=== PATIENT | female | born 1965 | race Caucasian/White ===

== ENCOUNTER 2017-01-12 21:36 | Emergency (ER) | payer MEDICARE ==
[~2017-01-12 21:36] MED LIST: ADVAIR 2501 DISK W/D; ALBUTEROL17 GM; ALER-CAP25 M1 PO; AMBIEN10 M1 PO; AMBIEN5 M1 PO; ATARAX50 MG; ATIVAN0.5 MG; ATIVAN1 M2 PO; AUGMENTIN 875-1 EAC2 PO; AVELOX400 MG; BENADRYL ALLERG25 M1 PO; BENADRYL PO; BENADRYL25 M3 PO; BIRTH CONTROL PO; BUPROPION XL300 M1 PO; CATAPRES0.1 MG; CEFTIN250 M1; CEFTIN250 M1 PO; CEFTRIAXONE IM; CIPRO500 M2 PO; CLONAZEPAM0.5 M2 PO; CLONAZEPAM1 M2 PO; CLONIDINE HCL0.1 MG; CLONIDINE HCL0.2 M1 PO; COUMADIN2.5 M1 PO; COUMADIN5 M2 PO; COUMADIN5 MG; COZAAR50 M1 PO; CYMBALTA30 M1 PO; CYMBALTA60 MG PO; DIOVAN80 M; ELIQUIS2.5 M1 PO; ELIQUIS5 M1 PO; ENTOCORT EC3 M1 PO; ENTOCORT EC3 MG PO; ESTRACE1 M3 PO; ESTRADIOL VG; FIORICET 50-301 EAC1 PO; GENTAMICIN; HYDROCODON-ACE1 EA16 PO; HYDROCODON-ACE1 EA17 PO; IRBESARTAN-HCT1 EAC1 PO; KEFLEX500 M4 PO; LAMICTAL200 M1 PO; LAMICTAL200 MG; LAMOTRIGINE ER200 MG PO; LEVAQUIN500 M1 PO; LEVOTHYROXINE137 MC1 PO; LEVOTHYROXINE175 MC2 PO; LIPITOR20 M1 PO; LIPITOR20 MG; LIPITOR20 MG PO; LIPITOR40 M1 PO; LOPRESSOR100 M1 PO; LORAZEPAM1 M1 PO; LORTAB 5-325 M1 EAC1 PO; LOSARTAN POTASS25 M1 PO; LUPRON; LUPRON DEP; MACROBID 100 M100 M1 PO; MOTRIN800 MG; NEXIUM40 MG; NORCO 5-325 TA1 EACH PO; NORCO 5/3251 TA1 PO; NORCO 7.5-3251 EACH PO; NORVASC10 MG; NUCYNTA50 M1 PO; OMEPRAZOLE40 M2 PO; PAXIL20 M1 PO; PAXIL30 M1 PO; PAXIL40 M1 PO; PEPCID20 MG PO; PERCOCET 10-321 EACH PO; PERCOCET 2.5-31 EACH PO; PERCOCET 5-3251 EACH PO; PHENERGAN25 M4 PR; PHENERGAN25 MG; PHENERGAN25 MG PO; PREDNISONE10 M1 PO; PREDNISONE20 M1 PO; PREDNISONE5 M1 PO; PRILOSEC OTC20 M1 PO; PROMETHAZINE HC25 M3 PO; PROMETHAZINE HC50 M2 PO; PROMETHAZINE HC50 M2 PR; PROTONIX40 M2 PO; PROVENTIL HFA6.7 G1 IH; PROVENTIL HFA6.7 G1 INH; SAPHRIS10 M1 SL; SAPHRIS5 M1 SL; SINGULAIR10 MG; SYNTHROID150 MCG; SYNTHROID175 MCG PO; TIZANIDINE HCL2 M2 PO; ULTRAM50 MG; ULTRAM50 MG PO; VALACYCLOVIR500 M1 PO; VERAPAMIL ER180 M1 PO; VERAPAMIL PO; VICODIN 5/500 T1 TAB PO; WELLBUTRIN; WELLBUTRIN XL150 M1 PO; WELLBUTRIN XL300 MG; ZANAFLEX4 M PO; ZANAFLEX6 MG; ZANTAC150 M1 PO; ZANTAC300 M3 PO; ZEGERID 40 MG C1 CAP; ZOFRAN ODT4 MG PO; ZOFRAN ODT8 MG/TAB PO; ZOFRAN4 M2 PO; ZOFRAN8 MG PO; ZOLOFT; ZOLOFT100 MG; [UNRECOGNIZED DRUG - OTHER]; [UNRECOGNIZED DRUG - OTHER] PO; [UNRECOGNIZED DRUG - OTHER] PO; [UNRECOGNIZED DRUG - OTHER] SL; [UNRECOGNIZED DRUG - OTHER] VG
[2017-01-12 22:57] LABS: BASO % 0.4 % (0-2); EOS % 2.5 % (0-7); EOSINOPHIL ABSOLUTE COUNT 0.1 tho/cmm (0.0-0.7); HCT-HEMATOCRIT 32.8 % (34.0-49.0); HGB-HEMOGLOBIN 10.5 gm/dl (12.0-15.5); IMMATURE GRANULOCYTES ABSOLUTE 0.01 tho/cmm (0-0.03); IMMATURE GRANULOCYTES PERCENT 0.2 % (0-0.3); LYMPH % 43.2 % (20-45); LYMPH ABSOLUTE COUNT 2.2 tho/cmm (0.8-4.5); MCH (MEAN CORPUSCULAR HGB) 26.4 pg (28.0-32.0); MCV (MEAN CELL VOLUME) 82.4 fl (82.0-96.0); MEAN PLATELET VOLUME 9.8 cmc (9.4-12.4); MONOCYTE ABSOLUTE COUNT 0.4 tho/cmm (0.0-1.2); NEUTROPHIL ABSOLUTE COUNT 2.3 tho/cmm (1.6-8.0); NEUTROPHIL-AUTOMATED 2.3 tho/cmm (1.6-8.0); NEUTROPHILS % 45.7 % (40-80); PLATELET COUNT 200 tho/cmm (150-450); RED BLOOD COUNT 3.98 mil/cmm (4.00-5.20); RED CELL DISTRIBUTION WIDTH 13.1 % (12.4-16.4); WHITE BLOOD COUNT 5.1 tho/cmm (4.0-10.0)
[2017-01-12 23:18] LABS: ALB/GLOB RATIO 1.3 (0.8-2.0); ALBUMIN 3.6 g/dl (3.5-5.0); ALKALINE PHOSPHATASE 88 U/L (33-138); ALT/SGPT 17 U/L (12-78); ANION GAP 12 mmol/L (0-20); AST/SGOT 10 U/L (10-40); BILIRUBIN,TOTAL 0.2 mg/dl (0-1.5); BLOOD UREA NITROGEN 9 mg/dl (6-24); CALCIUM 8.5 mg/dl (8.5-10.5); CARBON DIOXIDE-VENOUS 29 mmol/L (22-32); CHLORIDE 107 mmol/l (96-110); CREATININE 0.99 mg/dl (0.50-1.10); GLUCOSE 92 mg/dL (70-110); LIPASE 202 U/L (73-393); POTASSIUM 3.6 mmol/L (3.7-5.1); SODIUM 144 mmol/L (135-145); eGFR VALUE FOR BLACK 76 mL/Min
[2017-01-12 23:19] LABS: URINE BILIRUBIN NEGATIVE (NEG); URINE BLOOD NEGATIVE (NEG); URINE GLUCOSE (UA) NEGATIVE (NEG); URINE KETONE NEGATIVE (NEG); URINE LEUKOCYTE ESTERASE NEGATIVE (NEG); URINE NITRITE NEGATIVE (NEG); URINE PROTEIN NEGATIVE (NEG)
[2017-01-12 23:20] LABS: URINE APPEARANCE CLEAR; URINE COLOR YELLOW
== END 2017-01-13 00:10 ==
LOC: EDMED 21:36
PROVIDERS: Emergency Medicine
DX: R10.9 Unspecified abdominal pain (principal); G89.29 Other chronic pain; R06.02 Shortness of breath